=== PATIENT | male | born 2000 | race Caucasian/White ===

== ENCOUNTER 2022-03-21 14:42 | Day surgery (SDC) | payer OTHER, SELFPAY ==
[2022-03-21] VITALS (22 sets, daily range): BP systolic 101–118; BP diastolic 60–84; PULSE 67–110; RESP 12–18; TEMP 36.6–37.4; O2SAT 95–100; BMI 18.1
--- OUTSIDE RECORDS SUMMARY | 2022-03-21 15:40 | XMS_ITS ---
:2000 Author Care Team Providers Name Role Phone Timur Rainey Primary Care Provider Unavailable Allergies Code Code System Name Reaction Severity Status Onset NKDA ? Medications Name Status Start Date Stop Date ? ? Zithromax Z-Sha 250 mg tablet Active ? No t available TAKE 2 TABLETS (500 MG) BY ORAL ROUTE O NCE DAILY FOR 1 DAY THEN 1 TABLET (250 MG) BY ORAL ROUTE ONCE DAILY FOR 4 DAYS Problems Name Status Onset Date Source ? Acute Tonsillitis Active 03/17/2022 ? Procedures None recorded. Results Lab Results Date Name Specimen Result Interpretation Description Value Range Status Address ? 03/17/2022 Culture, Throat ? Culture, ? ? Final Q uest Throat [facility] - [place] [facility]: [address] 03/17/2022 Mononucleosis, Blood ? Result negative ? ? [facility], Blood [place] [facility]: [address] , [place] 03/17/2022 Rapid Strep Throat ? Strep negative ? ? [facility], Urgent C are Throat [place]: [address] , [place] Past Encounters 03/17/2022 Acute Pharyngitis; Acute Tonsillitis Timur Rainey, PA: [address], [facility] [address], [place] [address], Ph. Social History Tobacco Smoking Status Never Smoker Vaccine List Vaccine Type COVID-19, mRNA, LNP-S, PF, 30 mcg/0.3 mL dose ([facility]) 12/09/2020 12/30/2020 DTaP 01/29/1999 04/01/1999 06/03/1999 06/29/2000 Hep B, adolescent or pediatric 1998 Hep B, unspecified formulation 01/29/1999 09/06/1999 Hib, unspecified formulation 01/29/1999 04/01/1999 06/03/1999 03/17/2000 influenza, seasonal, injectable 04/25/2011 influenza, seasonal, injectable, preserv ative free 04/26/2012 influenza, unspecified formulation 04/16/2009 IPV 01/29/1999 04/01/1999 06/29/2000 meningococcal MCV4O 11/05/2015 meningococcal MCV4P 04/25/2011 MMR 12/03/1999 12/02/2002 pneumococcal conjugate PCV 7 12/03/1999 03/17/2000 Tdap 04/25/2011 varicella 12/03/1999 04/26/2012 Plan of Care Patient Instructions p?ush fluids and rest. T?ylenol or Ibuprofen as needed for pain or fever. g?argles or lozenges as needed for comfo rt. T?ada Z-pack as prescribed. See care instructions. PCP follow up in 4-5 days, sooner if pro blems, to ED if worsening pain, fever, difficulty swallowing or breathing. Reminders Provider Appointments None recorded. ? ? Lab None recorded. ? ? Referral None recorded. ? ? Procedures None recorded. ? ? Surgeries None recorded. ? ? Imaging None recorded. ? ? Vitals Blood Pressure 112/74 mm[Hg]
--- OUTSIDE RECORDS SUMMARY | 2022-03-21 15:40 | XMS_ITS | Encounter Summary ---
:2000 Author Reason for Visit sore throat Assessment and Plan Assessment Note tonsillitis, negative strep testing, th roat culture pending, negative mono. Cover with zithromax. Patient to monitor and i f any swallowing or breathing issues he is to proceed to ED immediately. Patient christianne nguyễn confirms understanding and agreement with this plan. 1. Acute pharyngitis ? rapid strep group A, throat ? sore throat: care instructions ? culture, throat ? mononucleosis, heterophile Ab, blood 2. Acute tonsillitis ? Zithromax Z-Sha 250 mg tablet Discussion Note: None recorded. Plan of Care Patient Instructions p?ush fluids and rest. T?ylenol or Ibuprofen as needed for pain or fever. g?argles or lozenges as needed for comfo rt. T?ada Z-pack as prescribed. See care instructions. PCP follow up in 4-5 days, sooner if pro blems, to ED if worsening pain, fever, difficulty swallowing or breathing. Reminders Provider Appointments None recorded. ? ? Lab Rapid Strep Group a, Throat 03/17/2022 [facility] [place] ? Culture, Throat 03/17/2022 [facility] ? Mononucleosis, Heterophile 03/17/2022 [facility], Blood [place] Referral None recorded. ? ? Procedures None recorded. ? ? Surgeries None recorded. ? ? Imaging None recorded. ? ? Medications Name Start Date ? ? Zithromax Z-Sha 250 mg tablet ? TAKE 2 TABLETS (500 MG) BY ORAL ROUTE O NCE DAILY FOR 1 DAY THEN 1 TABLET (250 MG) BY ORAL ROUTE ONCE DAILY FOR 4 DAYS Medications Administered None recorded. Vitals Blood Pressure 112/74 mm[Hg] Results Lab Results Date Name Specimen Result Interpretation Description Value Range Status Address ? 03/17/2022 Culture, Throat ? Culture, ? ? Final Q uest Throat [facility] - [place] [facility]: [address] [place] 03/17/2022 Mononucleosis, Blood ? Result negative ? ? [facility], Blood [place] [facility]: [address] , [place] 03/17/2022 Rapid Strep Throat ? Strep negative ? ? [facility]gent [facility] Th[facility]at [place]: [address] , [place] Allergies Code Code System Name Reaction Severity Onset NKDA ? ? ? Problems Name Status Onset Date Source ? Acute Tonsillitis Active 03/17/2022 ? Procedures None recorded. Vaccine List Vaccine Type COVID-19, mRNA, LNP-S, PF, 30 mcg/0.3 mL dose ([place]) 12/09/2020 12/30/2020 DTaP 01/29/1999 04/01/1999 06/03/1999 06/29/2000 [...] 12/03/1999 03/17/2000 Tdap 04/25/2011 varicella 12/03/1999 04/26/2012 Social History Tobacco Smoking Status Never Smoker What is your level of alcohol consumption? None Do you or have you ever used any other forms of tobacco or n icotine? N Have you been to an area known to be high risk for COVID-19? N In the 14 days before symptom onset, have you had close cont act with N a laboratory-confirmed COVID-19 while that case was ill? In the 14 days before symptom onset, have you had close cont act with N a person who is under investigation for COVID-19 while that person was ill? Family History Relation Problem Onset Age of Age Notes Father No current problems or (No Information) N/A ( No Notes) disability Mother No current problems or (No Information) N/A ( No Notes) disability Functional Status Unknown. Past Encounters 03/17/2022 Acute Pharyngitis; Acute Tonsillitis RATNA Nunez: [address], [place] [address], Ph. History of Present Illness ? Sore Throat UC Reported By: Patient HPI: Duration: started 3 day(s) a go. Quality: painful, sharp. Context: no recent travel, no one else w ith similar symptoms, non-smoker. Associated Symptoms: difficulty swallow ing, swollen glands, choking Notes: <div>S?T x 3 days, worse wit h swallowing, reports difficulty swallowing at times. Breathing is fine. No hx of chronic strep. 2 prior episodes of Beadle 8 years ago. Denies fev er or chills. </div> Review of Systems ? Comprehensive Adult Problem ROS Reported By: Patient Constitutional: Constitutional: no significa nt weight change, good appetite, no fever, happy/content, nor mal activity level, no fatigue Eyes: Eyes: no eye pain, no blurry vision, no eye redness, no eye itchiness, no eye swelling, no eye discharge, normal movement ENMT: ENMT: no ear pain, no ear di scharge, no hearing loss, no sinus pressure, no drooling, no fa cial swelling, no congestion, no hoarseness, no mouth lesions , sore throat Cardiovascular: Cardiovascular: no chest yasmin n, normal heart rate Chest/Breasts: Breasts: no lumps, no tender ness, no discharge Respiratory: Respiratory: no cough, no wh eezing, no chest tightness, no pain with respiration, angelina l respiration Gastrointestinal: GI: no difficulty swallowing , no abdominal pain, no nausea, no vomiting, no diarrhea, no co nstipation, no blood in stools, no mucous in stool Genitourinary: : no discharge, no blood i n urine, no pain with urination, no increase in frequency of urination, no voiding urgency, no testicular pain, no swelling , no redness, no itching, no masses Musculoskeletal: Musculoskeletal: no soft tis santi swelling, no joint swelling, no myalgia, moves all extrem ities well, no previous injuries, no trauma Skin: Skin: no pain, no itchiness, no skin dryness, no flaking, no redness, no rash, no hives, no skin lesions, no skin growths, no skin lumps, no swelling, no bruising, no insect bites Neurological symptoms: Neuro: no numbness, no weakn ess, no tingling, no burning, no shooting pain, no headache, no dizziness, no loss of consciousness Psychiatric: Psych: no depression, no anx iety, no insomnia, no stress, no loss of interest Endocrine: Endocrine: normal drinking, no temperature intolerance Allergic/Immunologic: Allergy/Immunologic: no snee zing, no runny nose Physical Exam ? Upper Respiratory Exam Reported By: Patient Constitutional: General Appearance: healthy- appearing, well-nourished, well-developed Head and Face: Inspection of face: no swell ing Eyes: Lids and Conjunctivae: no in jection, anicteric, conjunctiva: no mucoid discharge ENMT: EACs and TMs outer ear: righ t and left external auditory canals normal, tympanic membranes m obile and reactive to light bilateral. Nasal Passages: no nasal dis charge. Oropharynx: uvula midline, erythema, enlarged tonsils, exudates bilateral Neck: Neck: suppleness, non-tender , no masses, symmetrical Respiratory: Respiratory effort: breathin g normally, no inspiratory retraction. Auscultation: no wheezes, no rhonchi, no crackles, breath sounds normal Cardiovascular: Auscultation: RRR, no murmur Skin: skin inspection: no rashes; Acne noted
--- NOTE | 2022-03-21 15:51 | CRLHL7_ITS ---
For Patients: As a result of the Century Cures Act, medical imaging exams and procedure reports are released immediately into your electronic medical record. You may view this report before your referring provider. If you have questions, please contact your health care provider. INDICATION: Right peritonsillar abscess. TECHNIQUE: CT of the neck with 64 cc Isovue 370 iodinated contrast agent. Coronal and sagittal reconstructions are included. COMPARISON: None. FINDINGS: There is bilateral significant enlargement and hyperenhancement of the palatine tonsils with resulting effacement of the upper pharyngeal airway. There is a ring enhancing fluid collection within the right lateral tonsillar/peritonsillar region which measures 14 x 19 millimeters in axial plane and 24 millimeters in craniocaudal plane. It is consistent with an abscess. There is inflammatory thickening of the right parapharyngeal soft tissues. Multiple enlarged lymph nodes within the upper neck, reactive in etiology. The supraglottic, glottic and infraglottic larynx are normal. The airway including the trachea is normal and is patent. The parotid glands, submandibular and sublingual glands are normal in appearance. The thyroid gland is normal in appearance. The vascular structures opacify normally with contrast material. No suspicious lytic or blastic osseous lesions. No periapical dental disease. Visualized paranasal sinuses and mastoid air cells are clear. Visualized orbital and intracranial contents are normal. Supraclavicular regions, mediastinum and soft tissues of the imaged chest wall are normal. Visualized portions of the upper lungs are clear. IMPRESSION: 1. Findings consistent with pharyngitis/tonsillitis. Significant enlargement of the tonsils with effacement of the upper pharyngeal airway. Right peritonsillar abscess measures up to 24 millimeters in craniocaudal plane. Cellulitic change involving the right parapharyngeal soft tissues. 2. Reactive upper cervical lymphadenopathy. Please note that all CT scans at this facility use dose modulation, iterative reconstruction, and/or weight-based dosing when appropriate to reduce radiation dose to as low as reasonably achievable. Dictated by Lucien Robison MD @ 03/21/2022 6:19:47 PM (Electronically Signed)
--- NOTE | 2022-03-21 15:54 | ED_ITS ---
HPI - General Adult General Time Seen by Provider: 15:54 Date Seen: 03/21/22 Chief complaint: Sore Throat Stated complaint: Throat pain difficulty talking Time Seen by Provider: 03/21/22 15:11 Source: patient Mode of arrival: ambulatory Limitations: no limitations History of Present Illness HPI narrative: Patient is a 21 white male with a history of sore throat since , was started on a Z-Sha, but continues to have increasing pain in his right side of his throat even into his ear, he has had difficulty speaking swallowing and has had trouble opening his mouth fully. He has been generally healthy, no chronic medications, no recurrent sore throats, and he denies any significant fever or chills. The pain is been worse as mention in his throat wrote he rates at very high his O2 sat is 100%, he has not had COVID symptoms. No cough. Related Data Home Medications Medication Instructions Recorded Confirmed No Known Home Medications 03/21/22 03/21/22 Allergies Allergy/AdvReac Type Severity Reaction Status Date / Time No Known Drug Allergies Allergy Verified 03/21/22 15:25 Review of Systems Status of ROS: Reports: 10 or more systems reviewed and unremarkable except as noted in History and below Exam Narrative: Exam Narrative: Objective: Patient is alert orient x3, difficulty speaking, trismus Vital signs unremarkable afebrile, O2 sat 100% on room air HEENT shows exudate of tonsillitis and tonsillar and peritonsillar swelling on the right: Mild pharyngeal redness Neck is supple anterior adenopathy noted Pulses regular Extremities good perfusion Neurologic nonfocal Skin warm and dry 5th Const: Vital Signs, click to edit/add: Vital Signs - 24 hr 03/21/22 15:26 03/21/22 16:30 03/21/22 17:00 Temperature 97.8 F Pulse Rate [Left P ulse Oximeter] 83 91 82 Respiratory Rate 18 16 16 Blood Pressure [Le ft Upper Arm] 117/84 107/75 115/60 Pulse Oximetry 100 97 99 Oxygen Delivery Me thod Room Air 03/21/22 17:30 Temperature Pulse Rate [Left P ulse Oximeter] 79 Respiratory Rate 16 Blood Pressure [Le ft Upper Arm] 104/65 Pulse Oximetry 99 Oxygen Delivery Me thod Course Vital Signs Vital signs: Initial Vital Signs Temperature 97.8 F 03/21/22 15:26 Temperature Source Temporal Artery Scan 03/21/22 15:26 Pulse Rate 83 03/21/22 15:26 Respiratory Rate 18 03/21/22 15:26 Blood Pressure 117/84 03/21/22 15:26 Blood Pressure Mean 95 03/21/22 15:26 Blood Pressure Position Sitting 03/21/22 15:26 Pulse Oximetry 100 03/21/22 15:26 Oxygen Delivery Method 03/21/22 15:26 Vital Signs Temperature 97.8 F 03/21/22 15:26 Pulse Rate 83 03/21/22 15:26 Respiratory Rate 18 03/21/22 15:26 Blood Pressure 117/84 03/21/22 15:26 Pulse Oximetry 100 03/21/22 15:26 Oxygen Delivery Method 03/21/22 15:26 Temperature 97.8 F 03/21/22 15:26 Pulse Rate 79 03/21/22 17:30 Respiratory Rate 16 03/21/22 17:30 Blood Pressure 104/65 03/21/22 17:30 Pulse Oximetry 99 03/21/22 17:30 Oxygen Delivery Method 03/21/22 15:26 Medical Decision Making MDM Narrative Medical decision making narrative: The patient has significant peritonsillar swelling on the right consistent with a peritonsillar abscess, he has trismus, and has had a worsening sore throat despite antibiotics. Patient will get a CT scan of the neck for soft tissue, will start IV Solu-Medrol, IV Dilaudid, IV clindamycin. ENT consult when CT is completed Addendum: The patient has a large peritonsillar abscess on the right, has not eaten since 8 this morning, Dr. Vasquez in will kindly come down and see the patient and call the OR team. Lab Data Labs: Lab Results 03/21/22 03/21/22 03/21/22 Range/Units 15:40 15:40 15:40 WBC 13.81 H (4.50-11.00) K/uL RBC 4.97 (4.30-5.90) m/uL Hgb 14.2 (13.5-17.5) gm/dL Hct 42.9 (37.0-53.0) % MCV 86 (80-100) fL MCH 29 (26-34) pg MCHC 33 (32-36) gm/dL RDW Coeff of Sudarshan 13.0 (11.5-15.5) % Plt Count 317 (140-440) K/uL Neut % (Auto) 71.3 (42.0-72.0) % Lymph % (Auto) 15.7 L (20-44) % [place] % (Auto) 11.9 H (0.0-11.0) % Eos % (Auto) 0.8 (0.0-7.0) % Baso % (Auto) 0.1 (0.0-3.0) % Neut # (Auto) 9.80 H (1.7-7.0) K/uL Lymph # (Auto) 2.20 (0.90-2.90) K/uL [place] # (Auto) 1.60 H (0.00-0.90) K/UL Eos # (Auto) 0.10 (0.00-0.50) K/uL Baso # (Auto) 0.00 (0.00-0.30) K/uL Abs Immat Gran (auto) 0.03 (0.00-0.30) K/uL Sodium 140 (135-149) mmol/L Potassium 4.0 (3.6-5.1) mmol/L Chloride 101 (96-114) mmol/L Carbon Dioxide 26 (20-32) mmol/L BUN 10 (5-24) mg/dL Creatinine 0.7 (0.5-1.5) mg/dL Estimated Creat Clear 136.89 Estimated GFR 133 ml/min Glucose 77 (60-115) mg/dL Calcium 9.5 (8.4-10.6) mg/dL C-Reactive Protein 16.7 H (0.5-1.0) mg/dL SARS-CoV-2 (PCR) Negative SARS-CoV-2 (Negative) Discharge Plan Discharge Clinical Impression: Abscess, peritonsillar Prescriptions: No Action No Known Home Medications Follow Up/Referrals: Provider,Not a Local [Primary Care Provider] -
[2022-03-21 16:04] LABS: Basophils Percent Auto 0.1 % (0.0-3.0); Eosinophils Percent Auto 0.8 % (0.0-7.0); Hematocrit 42.9 % (37.0-53.0); Hemoglobin* 14.2 gm/dL (13.5-17.5); Immature Granulocytes Abs Auto 0.03 K/uL (0.00-0.30); Lymphocytes Percent Auto 15.7 % (20-44); Mean Corpuscular HGB Conc 33 gm/dL (32-36); Mean Corpuscular Hemoglobin 29 pg (26-34); Mean Corpuscular Volume 86 fL (80-100); Monocytes Percent Auto 11.9 % (0.0-11.0); Neutrophils Percent Auto 71.3 % (42.0-72.0); Platelet Count* 317 K/uL (140-440); Red Blood Count 4.97 m/uL (4.30-5.90); White Blood Count* 13.81 K/uL (4.50-11.00)
[2022-03-21 16:13] LABS: Slide Review Reflex No
[2022-03-21 16:19] LABS: Chloride* 101 mmol/L (96-114)
[2022-03-21 16:20] LABS: Sodium* 140 mmol/L (135-149)
[2022-03-21 16:22] LABS: Creatinine* 0.7 mg/dL (0.5-1.5); Est. Creatinine Clearance* 136.89; Estimated Glomerular Filt Rate 133 ml/min
[2022-03-21 16:23] LABS: Blood Urea Nitrogen* 10 mg/dL (5-24); Carbon Dioxide* 26 mmol/L (20-32); Glucose* 77 mg/dL (60-115)
[2022-03-21 16:24] LABS: Calcium* 9.5 mg/dL (8.4-10.6)
[2022-03-21] MEDS: 0.9 % SODIUM CHLORIDE 1000 ml 1,000 ML 6000 ML IV (16:28)
[2022-03-21] MEDS: METHYLPREDNISOLONE SOD SUCC 62.5 MG/ML (125) 125 MG IVP (16:28)
[2022-03-21] MEDS: HYDROmorphone 0.5 mg/0.5 ml inj IVP (16:28)
[2022-03-21 16:40] LABS: C Reactive Protein* 16.7 mg/dL (0.5-1.0)
[2022-03-21 16:53] LABS: SARS PCR* Negative SARS-CoV-2 (Negative)
--- NOTE | 2022-03-21 19:52 | W.PM.ENTCN ---
HPI- ENT Consult Date of Consult Time Seen by Provider: 19:00 Date Seen: 03/21/22 Patient: [facility] Patient Consult date: 03/21/22 Requesting Physician: Other (er) Primary Care Provider: Not a Local Provider Consult Narrative Reason for consult: Right peritonsillar abscess Narrative: Tiago Simeon is a 21 year old male with a several day history of sore throat worse on the right. Present ER with trismus and increasing right throat pain. No prior history of tonsillitis. CT scan revealed a right peritonsillar abscess that is either bilobed or 2 separate abscesses near the parapharyngeal space inferiorly on the right. He has notice shortness of breath but does have mild trace Review of Systems Narrative: Reviewed in Dr. Odonnell's note unremarkable no history of anesthetic or bleeding problems [facility] Medical History (Updated 03/21/22 @ 19:56 by Dario Herrera MD) Peritonsillar abscess Meds Home Medications and Allergies Allergies Allergy/AdvReac Type Severity Reaction Status Date / Time No Known Drug Allergies Allergy Verified 03/21/22 15:25 Exam Narrative: Exam Narrative: General skin neuro respiratory gait peripheral vascular vocal quality respiratory effort skin of head and neck negative ear external canal TM negative nose mucosa septum turbinates negative oral cavity oropharynx hypopharynx larynx neck parotid thyroid all negative with the exception of: Tonsils are 4+ mild right cervical adenopathy mild trismus. No visible abscess Const: Vital Signs, click to edit/add: Vital Signs - 24 hr 03/21/22 15:26 03/21/22 16:30 03/21/22 17:00 Temperature 97.8 F Pulse Rate [Left P ulse Oximeter] 83 91 82 Respiratory Rate 18 16 16 Blood Pressure [Le ft Upper Arm] 117/84 107/75 115/60 Pulse Oximetry 100 97 99 Oxygen Delivery Me thod Room Air 03/21/22 17:30 03/21/22 18:00 03/21/22 18:30 Temperature Pulse Rate [Left P ulse Oximeter] 79 89 85 Respiratory Rate 16 16 16 Blood Pressure [Le ft Upper Arm] 104/65 101/60 115/81 Pulse Oximetry 99 99 98 Oxygen Delivery Me thod Room Air Room Air 03/21/22 19:00 Temperature Pulse Rate [Left P ulse Oximeter] 84 Respiratory Rate 16 Blood Pressure [Le ft Upper Arm] 110/74 Pulse Oximetry 98 Oxygen Delivery Me thod Room Air ENT-CN: Result Labs Labs: Short CBC 03/21/22 Range/Units 15:40 WBC 13.81 H (4.50-11.00) K/uL Hgb 14.2 (13.5-17.5) gm/dL Hct 42.9 (37.0-53.0) % Plt Count 317 (140-440) K/uL BMP 03/21/22 15:40 Sodium 140 Potassium 4.0 Chloride 101 Carbon Dioxide 26 BUN 10 Creatinine 0.7 Glucose 77 Calcium 9.5 Assessment and Plan Assessment and plan (1) Peritonsillar abscess: Status: Acute (2) Abscess, peritonsillar: Status: Acute Plan Right peritonsillar abscess Discussed options with him regarding incision and drainage for Shakeel tonsillectomy versus medical therapy. I would favor incision and drainage. Risks include anesthesia bleeding COVID failure to achieve desired results recurrence injury to adjacent structures were all reviewed he understands and wishes to proceed we will go ahead as soon as possible
--- NOTE | 2022-03-21 19:56 | W.PM.ENTPROC ---
Procedure Note Date of procedure: 03/21/22 Procedure: Preoperative diagnosis Right peritonsillar abscess (es) Postoperative diagnosis same Procedure incision and drainage right peritonsillar/parapharyngeal abscess Under general endotracheal anesthesia patient was prepped and draped in usual fashion. The McIvor mouth gag was inserted the tongue retracted forward. There is a small amount of bleeding from anesthesia scraping the tonsil during intubation. Both tonsils were markedly enlarged. The abscess without visible. I took a needlepoint cautery and incised along the inferior anterior tonsillar pillar and immediately encountered the abscess. There appeared to be a separate abscess just superior to this. A culture was taken both cavities were copiously irrigated bleeding was controlled with Coblation. The patient was extubated in the operating room taken recovery satisfactory condition. Blood loss during procedure was less than 25 mL. There were no complications. Anesthesia Type: General Surgeon: Dario Herrera MD
--- NOTE | 2022-03-21 20:15 | W.ANESCHARGE ---
Anesthesia Charges Start Date/Time Anesthesia Start Date: 03/21/22 Anesthesia Start Time: 19:33 Stop Date/Time Anesthesia Stop Date: 03/21/22 Anesthesia Stop Time: 20:07 Summary Emergency: Yes
[2022-03-21] MEDS: AMPICILLIN/SULBACTAM 3 GM in 0.9 % SODIUM CHLORIDE Mini-bag 100 ML IVPB (22:13)
[2022-03-21] MEDS: IBUPROFEN 100 MG/5 ML SUSP 200 MG PO (22:15)
[2022-03-21] MEDS: OXYCODONE 1 MG/ML ORAL SOLN PO (22:16)
--- NOTE | 2022-03-21 23:16 | PC.NURSE ---
End of Shift: Patient arrived to floor about 2044 in bed. Patient awake and alert, rated pain at most 4/10, motrin and 5mg oxycodone given once. Patient drinking water. Patient vitally stable, lungs clear, BS WNL, IV running LR at 100. Right tonsil swollen with serosanguineous drainage on tonsil. Patient reports pain is less then before surgery. Patient has not yet urinated.
[2022-03-22 00:38] VITALS: BP 114/64; PULSE 69; RESP 16; TEMP 36.6; O2SAT 99
[2022-03-22 02:36] VITALS: BP 136/83; PULSE 73; RESP 16; TEMP 36.6; O2SAT 99
[2022-03-22] MEDS: 0.9 % SODIUM CHLORIDE 250 ml IV (03:36)
[2022-03-22] MEDS: AMPICILLIN/SULBACTAM 3 GM in 0.9 % SODIUM CHLORIDE Mini-bag 100 ML IVPB (03:37)
--- NOTE | 2022-03-22 03:51 | PC.NURSE ---
Pt rested well this night. Pain controlled. Up to BR and voiding. No N/V.
[2022-03-22 07:30] VITALS: BP 127/64; PULSE 71; RESP 18; TEMP 37.2; O2SAT 99
[2022-03-22] MEDS: IBUPROFEN 100 MG/5 ML SUSP 200 MG PO (07:50)
--- NOTE | 2022-03-22 20:09 | PC.NURSE ---
Adrian called M/S noting that swelling looked worse with a small amount of pus noted when he visualized the area. States that it does not feel any different. Denies fever or increased pain at this time. Spoke with Dr. Mares by phone and he has instructed the patient to go [facility] tomorrow at 9am to be seen. Also instructed patient if he has increased pain or other new symptoms he needs to go to the Emergency Department. Patient understands these instructions and has no further questions at this time.
== END 2022-03-22 09:09 | disposition home or self-care (01) ==
LOC: ED 18:37 → SS 18:39 → MEDSURG 20:44
PROVIDERS: Emergency Provider Family Medicine; Visit Provider Otolaryngology
PROC: 0C9PXZZ Drainage of Tonsils, External Approach (ICD-10-PCS; CPT 42700; principal; 2022-03-21 19:30)
DX: J36 Peritonsillar abscess (principal)
CPT/HCPCS: 42700; 00170; 36415; 70491; 80048; 85025; 86140; 87116; 87635; 99140; 99284; A9270; J0295; J0330; J1100; J1170; J2250; J2405; J2704; J2930; J3010; J7030; J7050; Q9967; S0077

== ENCOUNTER 2022-03-28 08:23 | Emergency (ER) | payer OTHER, SELFPAY ==
[2022-03-28 08:28] VITALS: BP 110/74; PULSE 69; RESP 18; TEMP 37.1; O2SAT 99; BMI 18.1
--- NOTE | 2022-03-28 08:38 | ED.GENADULT ---
HPI - General Adult General Time Seen by Provider: 08:38 Date Seen: 03/28/22 Chief complaint: Post Op Complication Stated complaint: Bleeding after surgery last Monday Time Seen by Provider: 03/28/22 08:33 Source: patient, RN notes reviewed and old records reviewed Mode of arrival: ambulatory Limitations: no limitations History of Present Illness HPI narrative: Patient presents to the ER about a 1/2 hour so after starting 10 notice some blood coming from the right tonsillar area. He was up a breakfast about 6:00 a.m.. About 730 he started noticing blood. He had about a 12 oz cup and had a few inches at the bottom of it from spitting up blood, some clots. It seems to have settled a bit now. Patient had a incision drainage intraoperatively of a right peritonsillar abscess with Dr. Herrera on March 21. He states the pain has been better, no fevers. He ate breakfast about 6:00 a.m., bleeding ensued about 730. He started to be able to taste blood. He feels is coming from the right peritonsillar area. He is not having any significant pain. Related Data Previous Rx's Medication Instructions Recorded amoxicillin-potassium clavulanate 1 tab PO BID #14 tabs 03/21/22 1,000 mg-62.5 mg tablet,ext.rel 12hr (Augmentin XR) oxycodone 5 mg tablet 5 mg PO Q4H PRN pain #20 tabs 03/21/22 amoxicillin 875 mg-potassium 1 tab PO BID 10 days #20 tabs 03/24/22 clavulanate 125 mg tablet Allergies Allergy/AdvReac Type Severity Reaction Status Date / Time No Known Drug Allergies Allergy Verified 03/24/22 12:58 Review of Systems Status of ROS: Reports: 6 or more systems reviewed and unremarkable except as noted in History and below [facility] Medical History (Updated 03/28/22 @ 11:25 by Natty Roth MD) Peritonsillar abscess Social History Smoking Status: Never smoker Do you use any of these nicotine containing products: None How often do you have a drink containing alcohol: monthly or less How many standard drinks containing alcohol do you have on a typical day: 1 or 2 How often do you have six or more drinks on one occasion: Never AUDIT-C Alcohol total score: 1 Non-prescribed substance use: denies use service: No Exam Const: Vital Signs, click to edit/add: Vital Signs - 24 hr 03/28/22 08:28 03/28/22 10:28 Temperature 98.7 F 98 F Pulse Rate [Right Pulse Oximeter] 69 76 Respiratory Rate 18 16 Blood Pressure [Ri ght Upper Arm] 110/74 102/64 Pulse Oximetry 99 Oxygen Delivery Me thod Room Air Documenting provider has reviewed patient's vital signs: yes Common normals: no apparent distress, oriented x3, no limitations, healthy appearing, alert and well nourished General appearance: cooperative, comfortable and well kempt Nutritional appearance: thin HENMT: Common normals: normocephalic, head/scalp atraumatic, hearing grossly normal bilaterally, external ears normal, EAC's normal, TM's normal bilaterally, external nose normal, nasal mucous membranes and turbinates normal, moist oral mucous membranes, dentition normal and gingiva normal Head and scalp: normocephalic and atraumatic Nose: external nose normal and nasal mucous membranes and turbinates normal External ear: external ears normal External auditory canal: EAC's normal Tympanic membrane: TM's normal bilaterally Other: Has tonsils bilaterally which looks symmetric, 2+. You can see the incision with a little whitish surrounding tissue on the base of the right peritonsillar area. I do see some clot within that incision but no active bleeding at this time. No bleeding elsewhere within his oropharyngeal cavity. Eye: Common normals: PERRL, EOMs intact bilaterally, conjunctivae normal and no scleral icterus Conjunctiva: conjunctiva(e) normal Pupil: PERRL Neck & C-Spine: Common normals: full ROM, no lymphadenopathy, supple, no meningeal signs, no JVD and thyroid normal Thyroid: thyroid normal Resp: Common normals: normal respiratory effort, no retractions, no use of accessory muscles and clear to auscultation bilaterally Auscultation: clear to auscultation bilaterally Cardio: Common normals: no JVD, regular rate, regular rhythm, S1 normal heart sound, S2 normal heart sound, no gallops, no clicks and no murmurs Rate: regular rate Rhythm: regular rhythm Heart sounds: S1 normal and S2 normal Neuro: Common normals: oriented x3 Sensorium/orientation: alert Meningeal signs: no meningeal signs Psych: Appearance: well kempt Course Reevaluation(s) Reevaluation #1: Patient has had no further significant rebleeding that he had at home. Has some slightly pinkish discolored saliva into the emesis bag. No rik blood clots or active blood in there. The tonsillar base still looks to have the clot on it. I do not see any active bleeding. We are going to have him try some clear liquids here and if no further rebleeding, discharge to home. Time: 10:30 Reevaluation #2: Tolerating orals without any stimulation of bleeding. Time: 11:21 Consultations Consultation #1: Spoke with Dr. Herrera and he would like us to observe the patient for few hours. I do not see any active bleeding. If he does start bleeding again we are to contact him and patient will likely need to go to the OR for cautery. I will place an IV, obtain a baseline CBC. Time: 08:38 Vital Signs Vital signs: Initial Vital Signs Temperature 98.7 F 03/28/22 08:28 Temperature Source Temporal Artery Scan 03/28/22 08:28 Pulse Rate 69 03/28/22 08:28 Respiratory Rate 18 03/28/22 08:28 Blood Pressure 110/74 03/28/22 08:28 Blood Pressure Mean 86 03/28/22 08:28 Blood Pressure Position Sitting 03/28/22 08:28 Pulse Oximetry 99 03/28/22 08:28 Oxygen Delivery Method 03/28/22 08:28 Vital Signs Temperature 98.7 F 03/28/22 08:28 Pulse Rate 69 03/28/22 08:28 Respiratory Rate 18 03/28/22 08:28 Blood Pressure 110/74 03/28/22 08:28 Pulse Oximetry 99 03/28/22 08:28 Oxygen Delivery Method 03/28/22 08:28 Temperature 98 F 03/28/22 10:28 Pulse Rate 76 03/28/22 10:28 Respiratory Rate 16 03/28/22 10:28 Blood Pressure 102/64 03/28/22 10:28 Pulse Oximetry 99 03/28/22 08:28 Oxygen Delivery Method 03/28/22 08:28 Medical Decision Making Lab Data Lab results reviewed: Yes I reviewed the patient's lab results Labs: Lab Results 03/28/22 03/28/22 Range/Units 08:58 09:05 WBC 6.95 (4.50-11.00) K/uL RBC 5.25 (4.30-5.90) m/uL Hgb 15.0 (13.5-17.5) gm/dL Hct 45.4 (37.0-53.0) % MCV 87 (80-100) fL MCH 29 (26-34) pg MCHC 33 (32-36) gm/dL RDW Coeff of Sudarshan 12.8 (11.5-15.5) % Plt Count 389 (140-440) K/uL Neut % (Auto) 52.9 (42.0-72.0) % Lymph % (Auto) 34.7 (20-44) % [place] % (Auto) 10.2 (0.0-11.0) % Eos % (Auto) 1.2 (0.0-7.0) % Baso % (Auto) 0.6 (0.0-3.0) % Neut # (Auto) 3.68 (1.7-7.0) K/uL Lymph # (Auto) 2.41 (0.90-2.90) K/uL [place] # (Auto) 0.70 (0.00-0.90) K/UL Eos # (Auto) 0.08 (0.00-0.50) K/uL Baso # (Auto) 0.04 (0.00-0.30) K/uL Abs Immat Gran (auto) 0.03 (0.00-0.30) K/uL SARS-CoV-2 (PCR) Negative SARS-CoV-2 (Negative) Critical Care Time Critical Care Time Critical Care Time: No Discharge Plan Discharge Clinical Impression: Post-op bleeding Patient Disposition: Home, Self-Care Condition: Stable Additional Instructions: Continue with postoperative recommendations as per your surgeon. I would not do any significant physical activity, try to rest for the next 48 hours. Stay hydrated drinking fluids, soft foods only so as to not aggravate the clot on the right tonsil. I have provided a note to be off work for the next 48 hours. If you should experience rebleeding, please return to the ER for further evaluation. Dr. Herrera only needs to see you if there are complications, otherwise can see him at your routine planned postoperative recheck. Prescriptions: No Action amoxicillin-pot clavulanate 875-125 mg tablet 1 tab PO BID 10 Days Qty: 20 0RF oxycodone 5 mg tablet 5 mg PO Q4H PRN (Reason: pain) Qty: 20 0RF amoxicillin-pot clavulanate [Augmentin XR] 1,000-62.5 mg tablet extended release 12 hr 1 tab PO BID Qty: 14 0RF Follow Up/Referrals: Provider,Not a Local [Primary Care Provider] - Stand Alone Forms: [facility] Info Instructions
[2022-03-28 09:12] LABS: Basophils Absolute Auto 0.04 K/uL (0.00-0.30); Basophils Percent Auto 0.6 % (0.0-3.0); Eosinophils Absolute Auto 0.08 K/uL (0.00-0.50); Eosinophils Percent Auto 1.2 % (0.0-7.0); Hematocrit 45.4 % (37.0-53.0); Immature Granulocytes Abs Auto 0.03 K/uL (0.00-0.30); Lymphocytes Absolute Auto 2.41 K/uL (0.90-2.90); Lymphocytes Percent Auto 34.7 % (20-44); Mean Corpuscular HGB Conc 33 gm/dL (32-36); Mean Corpuscular Hemoglobin 29 pg (26-34); Mean Corpuscular Volume 87 fL (80-100); Monocytes Percent Auto 10.2 % (0.0-11.0); Neutrophils Absolute Auto 3.68 K/uL (1.7-7.0); Neutrophils Percent Auto 52.9 % (42.0-72.0); Platelet Count* 389 K/uL (140-440); RDW Coefficient of Variation % 12.8 % (11.5-15.5); Red Blood Count 5.25 m/uL (4.30-5.90); White Blood Count* 6.95 K/uL (4.50-11.00)
[2022-03-28 09:22] LABS: Slide Review Reflex No
[2022-03-28 10:13] LABS: SARS PCR* Negative SARS-CoV-2 (Negative)
[2022-03-28 10:28] VITALS: BP 102/64; PULSE 76; RESP 16; TEMP 36.6
--- NOTE | 2022-03-28 11:50 | ED.NURSE ---
Pt d/c to home, note for work given. Pt did not have IV placed. blood was drawn instead
== END 2022-03-28 11:50 | disposition home or self-care (01) ==
PROVIDERS: Emergency Provider Family Medicine
DX: L76.22 Postprocedural hemorrhage of skin and subcutaneous tissue following other procedure (principal)
CPT/HCPCS: 36415; 85025; 87635; 99283

== ENCOUNTER 2022-04-09 17:16 | Observation (INO) | payer OTHER, SELFPAY ==
[2022-04-09 17:26] VITALS: BP 113/76; PULSE 91; RESP 12; TEMP 38; O2SAT 99; BMI 18.1
--- NOTE | 2022-04-09 18:10 | CRLHL7_ITS ---
For Patients: As a result of the Century Cures Act, medical imaging exams and procedure reports are released immediately into your electronic medical record. You may view this report before your referring provider. If you have questions, please contact your health care provider. Indication: Peritonsillar abscess Technique: Volumetric multidetector CT images of the cervical soft tissues were obtained after the administration of low osmolar intravenous contrast. Sixty-four cc Isovue 370 low osmolar intravenous contrast Comparison: CT soft tissue neck March 21, 2022 Findings: The partially visualized brain parenchyma is normal in attenuation without evidence of abnormal enhancement. The orbits and their contents are within normal limits. The paranasal sinuses are clear. The mastoid air cells are clear. The nasopharynx is unremarkable. The fossae of Rosenmuller are clear. There are enlarged bilateral palatine tonsils left greater than right with demonstration of a 2.0 x 1.2 centimeter abscess within the left palatine tonsil along the lateral tonsillar margin without definite extension into the parapharyngeal space. Previously seen abscess within the right palatine tonsil on previous exam has resolved. The hypopharynx is clear. The deep spaces of the neck are otherwise preserved. The vocal folds are nonthickened with symmetrical appearance. The thyroid gland is normal in attenuation. There are moderately enlarged left greater than right cervical lymph nodes commensurate with reactive changes. The jugular veins are patent. The carotid arteries demonstrate no significant atherosclerotic narrowing. The lung apices are clear. The cervical vertebral body heights are grossly maintained with reversal of the normal cervical lordosis. Impression: Interval drainage of previously-seen inferior right parapharyngeal abscess from remote comparison exam. There is persistent enlargement of the palatine tonsils commensurate with tonsillitis with development of a new rim enhancing 2.0 x 1.2 centimeter abscess within the lateral margin of the left palatine tonsil without definite extension into the parapharyngeal space. Persistent reactive adenopathy. Please note that all CT scans at this facility use dose modulation, iterative reconstruction, and/or weight-based dosing when appropriate to reduce radiation dose to as low as reasonably achievable. Dictated by Naif Chisholm MD @ 04/09/2022 7:40:45 PM (Electronically Signed)
--- NOTE | 2022-04-09 18:12 | ED_ITS ---
HPI - General Adult General Chief complaint: Ear/Nose/Throat Problem Stated complaint: Left tonsil swelling causing difficulty breathing Time Seen by Provider: 04/09/22 18:03 Source: patient Limitations: no limitations History of Present Illness HPI narrative: 21-year-old male presents with a left-sided sore throat for the past 3 days, radiating to the left ear and worsening significantly since yesterday. Interestingly, he had a right peritonsillar abscess 2-1/2 weeks ago that was evaluated in our emergency department. He underwent uncomplicated surgical drainage for this. Patient states that he is having no difficulty breathing, is still able to swallow. He had a soft Taco today at approximately noon. He took some ibuprofen earlier today with no improvement in his pain. He noted fever that started early this afternoon, prompting presentation to the emergency department. He notes no other systemic symptoms, has no long-term health problems. His only prior surgery is the peritonsillar abscess drainage 2 and half weeks ago, takes no long-term medications, has not been on antibiotics in the last few days. No recent trauma or injury. Related Data Previous Rx's Medication Instructions Recorded amoxicillin-potassium clavulanate 1 tab PO BID #14 tabs 03/21/22 1,000 mg-62.5 mg tablet,ext.rel 12hr (Augmentin XR) oxycodone 5 mg tablet 5 mg PO Q4H PRN pain #20 tabs 03/21/22 Allergies Allergy/AdvReac Type Severity Reaction Status Date / Time No Known Drug Allergies Allergy Verified 04/09/22 18:55 Review of Systems Narrative: Notable for the generalized and HEENT symptoms as above. Otherwise denies any respiratory, cardiovascular, GI, skin, musculoskeletal, neurological or behavioral Health changes. Const: Reports: fever ENMT: Reports: throat pain PFSH PFSH Medical History (Updated 04/09/22 @ 20:03 by Ekaterina Brownlee MD) Peritonsillar abscess Surgical History (Updated 04/09/22 @ 19:59 by Ekaterina Brownlee MD) Hx of peritonsillar abscess drainage Social History Smoking Status: Never smoker Do you use any of these nicotine containing products: None How often do you have a drink containing alcohol: monthly or less How many standard drinks containing alcohol do you have on a typical day: 1 or 2 How often do you have six or more drinks on one occasion: Never AUDIT-C Alcohol total score: 1 Non-prescribed substance use: denies use service: No Exam Const: Vital Signs, click to edit/add: Vital Signs - 24 hr 04/09/22 17:26 04/09/22 18:38 04/09/22 19:17 Temperature 100.4 F H Pulse Rate [Pulse Oximeter] 91 78 77 Respiratory Rate 12 Blood Pressure [Ri ght Upper Arm] 113/76 Pulse Oximetry 99 98 99 Oxygen Delivery Me thod Room Air Room Air Room Air Documenting provider has reviewed patient's vital signs: yes Common normals: no apparent distress and alert General appearance: cooperative and well kempt Orientation/consciousness: Yes awake Other: Sweet and cooperative. Excellent historian. HENMT: Common normals: normocephalic, external ears normal, EAC's normal and external nose normal Head and scalp: normocephalic Face and sinus: normal facial exam Nose: external nose normal and nares normal External ear: external ears normal External auditory canal: EAC's normal Other: Oropharynx has moist membranes, lips acyanotic, good dentition. The right tonsil is 2+ with no redness or swelling. The left peritonsillar area appears swollen with some displacement of the left pharyngeal arch. Eye: Common normals: conjunctivae normal and no scleral icterus Conjunctiva: conjunctiva(e) normal Neck & C-Spine: Other: Moderate bilateral submandibular and anterior cervical lymphadenopathy. Normal range of motion of neck Resp: Common normals: normal respiratory effort and clear to auscultation bilaterally Auscultation: clear to auscultation bilaterally Cardio: Common normals: regular rate, regular rhythm, no murmurs and peripheral pulses 2+ throughout Rate: regular rate Rhythm: regular rhythm Peripheral pulses: pulses 2+ throughout GI: Common normals: Normal to inspection, nondistended, normoactive bowel sounds present, soft to palpation, non-tender and no hepatosplenomegaly Palpation: soft and no hepatosplenomegaly Extremity: Common normals: no pedal edema Neuro: Sensorium/orientation: awake and alert Motor exam: no tremor noted and no movement abnormalities noted Psych: Appearance: well kempt Attitude: calm and engaged Attention/concentration: attention grossly intact Memory/cognition: memory grossly intact Insight: insight good Judgement: judgment good Skin: Common normals: no rashes or lesions noted General skin exam: no rashes or lesions noted Course Vital Signs Vital signs: Initial Vital Signs Temperature 100.4 F H 04/09/22 17:26 Temperature Source Temporal Artery Scan 04/09/22 17:26 Pulse Rate 91 04/09/22 17:26 Pulse Rhythm 04/09/22 17:26 Respiratory Rate 12 04/09/22 17:26 Blood Pressure 113/76 04/09/22 17:26 Blood Pressure Mean 88 04/09/22 17:26 Blood Pressure Position Sitting 04/09/22 17:26 Pulse Oximetry 99 04/09/22 17:26 Oxygen Delivery Method 04/09/22 17:26 Vital Signs Temperature 100.4 F H 04/09/22 17:26 Pulse Rate 91 04/09/22 17:26 Respiratory Rate 12 04/09/22 17:26 Blood Pressure 113/76 04/09/22 17:26 Pulse Oximetry 99 04/09/22 17:26 Oxygen Delivery Method 04/09/22 17:26 Temperature 100.4 F H 04/09/22 17:26 Pulse Rate 77 04/09/22 19:17 Respiratory Rate 12 04/09/22 17:26 Blood Pressure 113/76 04/09/22 17:26 Pulse Oximetry 99 04/09/22 19:17 Oxygen Delivery Method 04/09/22 19:17 Medical Decision Making MDM Narrative Medical decision making narrative: Suspect left-sided peritonsillar abscess, differential diagnosis discussed with patient. IV fluids given, patient had some temporary improvement with the IV morphine. CT scan was performed, showing a 1.2 x 2 cm left peritonsillar abscess. Dr. Herrera is out of town, case was discussed with Dr. Cates. He recommended IV antibiotics and reassessment tomorrow. I discussed the case with our hospitalist, we will begin IV clindamycin. Dr. Cates does not recommend steroids. Patient should be re-evaluated early tomorrow afternoon and Dr. Cates should be updated if his symptoms are not improving, may require surgical drainage. Dr. Cates's phone number is [phone]. No signs of trismus, no airway compromise. Lab Data Lab results reviewed: Yes I reviewed the patient's lab results Labs: Lab Results 04/09/22 04/09/22 04/09/22 Range/Units 18:33 18:33 18:33 WBC 13.32 H (4.50-11.00) K/uL RBC 4.61 (4.30-5.90) m/uL Hgb 13.3 L (13.5-17.5) gm/dL Hct 40.1 (37.0-53.0) % MCV 87 (80-100) fL MCH 29 (26-34) pg MCHC 33 (32-36) gm/dL RDW Coeff of Sudarshan 12.9 (11.5-15.5) % Plt Count 364 (140-440) K/uL Neut % (Auto) 72.7 H (42.0-72.0) % Lymph % (Auto) 14.9 L (20-44) % [place] % (Auto) 11.6 H (0.0-11.0) % Eos % (Auto) 0.5 (0.0-7.0) % Baso % (Auto) 0.2 (0.0-3.0) % Neut # (Auto) 9.70 H (1.7-7.0) K/uL Lymph # (Auto) 2.00 (0.90-2.90) K/uL [place] # (Auto) 1.50 H (0.00-0.90) K/UL Eos # (Auto) 0.10 (0.00-0.50) K/uL Baso # (Auto) 0.00 (0.00-0.30) K/uL Abs Immat Gran (auto) 0.01 (0.00-0.30) K/uL Sodium 139 (135-149) mmol/L Potassium 3.7 (3.6-5.1) mmol/L Chloride 102 (96-114) mmol/L Carbon Dioxide 25 (20-32) mmol/L BUN 14 (5-24) mg/dL Creatinine 0.9 (0.5-1.5) mg/dL Estimated Creat Clear 106.47 Estimated GFR 123 ml/min Glucose 84 (60-115) mg/dL Calcium 9.7 (8.4-10.6) mg/dL C-Reactive Protein 5.1 H (0.5-1.0) mg/dL SARS-CoV-2 (PCR) Negative SARS-CoV-2 (Negative) Imaging Data CT- Other: My impression: 1.2 x 2 cm left peritonsillar abscess. Radiology report reviewed. Discharge Plan Discharge Clinical Impression: Abscess, peritonsillar Patient Disposition: Admitted As Inpatient Prescriptions: No Action oxycodone 5 mg tablet 5 mg PO Q4H PRN (Reason: pain) Qty: 20 0RF amoxicillin-pot clavulanate [Augmentin XR] 1,000-62.5 mg tablet extended release 12 hr 1 tab PO BID Qty: 14 0RF Follow Up/Referrals: Provider,Not a Local [Primary Care Provider] -
[2022-04-09] MEDS: LACTATED RINGERS 1000 ML 1,000 ML IV (18:33)
[2022-04-09] MEDS: MORPHINE 2 MG/ML inj IVP (18:33)
[2022-04-09] MEDS: ONDANSETRON 2 MG/ML inj 4 MG IVP (18:33)
[2022-04-09 18:38] VITALS: PULSE 78; O2SAT 98
[2022-04-09 18:41] LABS: Basophils Percent Auto 0.2 % (0.0-3.0); Eosinophils Percent Auto 0.5 % (0.0-7.0); Hematocrit 40.1 % (37.0-53.0); Hemoglobin* 13.3 gm/dL (13.5-17.5); Immature Granulocytes Abs Auto 0.01 K/uL (0.00-0.30); Lymphocytes Percent Auto 14.9 % (20-44); Mean Corpuscular HGB Conc 33 gm/dL (32-36); Mean Corpuscular Hemoglobin 29 pg (26-34); Mean Corpuscular Volume 87 fL (80-100); Monocytes Percent Auto 11.6 % (0.0-11.0); Neutrophils Percent Auto 72.7 % (42.0-72.0); Platelet Count* 364 K/uL (140-440); RDW Coefficient of Variation % 12.9 % (11.5-15.5); Red Blood Count 4.61 m/uL (4.30-5.90); White Blood Count* 13.32 K/uL (4.50-11.00)
--- OUTSIDE RECORDS SUMMARY | 2022-04-09 18:42 | XMS_ITS ---
:2000 Author Care Team Providers Name Role Phone Timur Rainey Primary Care Provider Unavailable Allergies Code Code System Name Reaction Severity Status Onset NKDA ? Medications Name Status Start Date Stop Date ? ? amoxicillin 875 mg-potassium clavulanate 125 mg tablet Active ? Not available TAKE 1 TABLET BY MOUTH TWICE DAILY FOR 10 DAYS amoxicillin-potassium clavulanate 1,000 mg-62.5 mg tablet,ext.re l 12hr Active ? Not available TAKE 1 TABLET BY MOUTH TWICE DAILY azithromycin 250 mg tablet Active ? Not a vailable oxycodone 5 mg tablet Active ? Not availa ble TAKE 1 TABLET BY MOUTH EVERY 4 HOURS NEEDED FOR PAIN Problems Name Status Onset Date Source ? Acute Tonsillitis Active 03/17/2022 ? Procedures None recorded. Results Lab Results Date Name Specimen Result Interpretation Description Value Range Status Address ? 03/17/2022 Culture, Throat ? Culture, ? ? Final Q uest Throat [facility]ro[facility] - [place] [facility]: [id number], [place] 03/17/2022 Mononucleosis, Blood ? Result negative ? ? [facility], Blood [place] lt: [address] , [place] 03/17/2022 Rapid Strep Throat ? Strep negative ? ? [facility], Urgent C are Throat [place]: [address] , [place] Past Encounters 03/17/2022 Acute Pharyngitis; Acute Tonsillitis Timur Rainey, PA: [address], [address], [place] [id number], Ph. Social History Tobacco Smoking Status Never Smoker Vaccine List Vaccine Type COVID-19, mRNA, LNP-S, PF, 30 mcg/0.3 mL dose ([place]) 12/09/2020 12/30/2020 DTaP 01/29/1999 04/01/1999 06/03/1999 06/29/2000 [...]
--- OUTSIDE RECORDS SUMMARY | 2022-04-09 18:42 | XMS_ITS | Encounter Summary ---
[...] a, Throat 03/17/2022 [facility] [place] ? Culture, Throat 03/17/2022 [facility] ? Mononucleosis, Heterophile 03/17/2022 [facility], Blood [place] Referral None recorded. ? ? Procedures None recorded. ? ? Surgeries None recorded. ? ? Imaging None recorded. ? ? Medications Name Start Date ? ? amoxicillin 875 mg-potassium clavulanate 125 mg tablet ? TAKE 1 TABLET BY MOUTH TWICE DAILY FOR 10 DAYS amoxicillin-potassium clavulanate 1,000 mg-62.5 mg tab let,ext.rel 12hr ? TAKE 1 TABLET BY MOUTH TWICE DAILY azithromycin 250 mg tablet ? TAKE 2 TABLETS (500 MG) BY ORAL ROUTE O NCE DAILY FOR 1 DAY THEN 1 TABLET (250 MG) BY ORAL ROUTE ONCE DAILY FOR 4 DAYS oxycodone 5 mg tablet ? TAKE 1 TABLET BY MOUTH EVERY 4 HOURS NEEDED FOR PA IN Medications Administered None recorded. Vitals Blood Pressure [...] [address] , [place] 03/17/2022 Rapid Strep Throat ? Strep negative ? ? [facility] [place]: [address] , [place] Allergies Code Code System Name Reaction Severity Onset NKDA ? ? ? Problems Name Status Onset Date Source ? Acute Tonsillitis Active 03/17/2022 ? Procedures None recorded. Vaccine List Vaccine Type COVID-19, mRNA, LNP-S, PF, 30 mcg/0.3 mL dose (Cyanogen) 12/09/2020 12/30/2020 DTaP 01/29/1999 04/01/1999 06/03/1999 06/29/2000 [...] RATNA Nunez: [address], [address], [place] [id number], Ph. History of Present Illness ? Sore [...] of chronic strep. 2 prior episodes of R[place] 8 years ago. Denies fev er or [...]
[2022-04-09 18:52] LABS: Slide Review Reflex No
[2022-04-09 18:58] LABS: Chloride* 102 mmol/L (96-114); Potassium* 3.7 mmol/L (3.6-5.1); Sodium* 139 mmol/L (135-149)
[2022-04-09 19:01] LABS: Blood Urea Nitrogen* 14 mg/dL (5-24); Carbon Dioxide* 25 mmol/L (20-32); Creatinine* 0.9 mg/dL (0.5-1.5); Est. Creatinine Clearance* 106.47; Estimated Glomerular Filt Rate 123 ml/min
[2022-04-09 19:02] LABS: Calcium* 9.7 mg/dL (8.4-10.6); Glucose* 84 mg/dL (60-115)
[2022-04-09 19:04] LABS: C Reactive Protein* 5.1 mg/dL (0.5-1.0)
[2022-04-09 19:17] VITALS: PULSE 77; O2SAT 99
[2022-04-09 19:23] LABS: SARS PCR* Negative SARS-CoV-2 (Negative)
--- NOTE | 2022-04-09 19:55 | PM.IMHP1 ---
Hospitalist- H&P: HPI History of Present Illness Date Seen: 04/09/22 Chief complaint: Left tonsil swelling causing difficulty breathing Narrative: Tiago Simeon is a 21 year old male who presented to the ED for L sided throat pain. Symptoms have been present for 3 days, worse today. No fevers prior to ED arrival. + dysphagia and odynophagia, no trismus. Primarily eating softer foods 2/2 symptoms. No sick contacts. Adrian is generally healthy. Interestingly, he had a RIGHT DOCUMENTATION BILLING CLERK 3 weeks ago, drained by Dr. Herrera of ENT. That is his only previous surgery. ER course and findings: - White blood count of 13 - given IV pain medication and clindamycin - CT scan exhibits a 2 cm x 1.2 cm abscess in left tonsil without definite extension to the parapharyngeal space - ED physician discussed case with Dr. Cates of ENT, who recommends admission, continuing clindamycin, and clinical monitoring. Steroids were not recommended by ENT. When I see patient, he has no concerns for me. No significant family history. Has been COVID vaccinated. Nonsmoker, rare ETOH use. No history of STIs. Monogamous with partner (Cassie Gonzalez, , medical decision maker if needed); Adrian lives with her and their 2 toddlers. Requests Full Code status. Review of Systems Status of ROS: Reports: 10 or more systems reviewed and unremarkable except as noted in History and below Narrative: Mild headache today. No abdominal pain or joint pain. No skin changes. PFSH PFSH Medical History (Updated 04/09/22 @ 20:03 by Ekaterina Brownlee MD) Peritonsillar abscess Surgical History (Updated 04/09/22 @ 19:59 by Ekaterina Brownlee MD) Hx of peritonsillar abscess drainage Social History Highest level of school completed/degree received: high school graduate Smoking Status: Never smoker Do you use any of these nicotine containing products: None How often do you have a drink containing alcohol: monthly or less How many standard drinks containing alcohol do you have on a typical day: 1 or 2 How often do you have six or more drinks on one occasion: Never AUDIT-C Alcohol total score: 1 Non-prescribed substance use: denies use Caffeine: No service: No Meds Home Medications and Allergies Home Medication Comments: Patient takes no medications on a regular basis. Allergies Allergy/AdvReac Type Severity Reaction Status Date / Time No Known Drug Allergies Allergy Verified 04/09/22 18:55 Exam Narrative: Exam Narrative: GEN: Alert and oriented, answering questions appropriately. Noted to have a hot potato voice HEENT: Normal external ears, EOMIs bilaterally. No trismus noted on oropharyngeal exam. + bilateral tonsillar hypertrophy, posterior oropharynx patent. + Full ROM of neck, + cervical adenopathy CV: RRR, No concerning murmurs, rubs, or gallops R: LCTA bilaterally without concerning wheezing, rales, or rhonchi Ext: wwp, no concerning edema Skin: No concerning skin lesions or rashes on exposed skin Neuro: Nonfocal Psych: Appropriate Const: Vital Signs, click to edit/add: Vital Signs - 24 hr 04/09/22 17:26 04/09/22 18:38 04/09/22 19:17 Temperature 100.4 F H Pulse Rate [Pulse Oximeter] 91 78 77 Respiratory Rate 12 Blood Pressure [Ri ght Upper Arm] 113/76 Pulse Oximetry 99 98 99 Oxygen Delivery Me thod Room Air Room Air Room Air Hospitalist - H&P: Result Labs Labs: Short CBC 04/09/22 Range/Units 18:33 WBC 13.32 H (4.50-11.00) K/uL Hgb 13.3 L (13.5-17.5) gm/dL Hct 40.1 (37.0-53.0) % Plt Count 364 (140-440) K/uL BMP 04/09/22 18:33 Sodium 139 Potassium 3.7 Chloride 102 Carbon Dioxide 25 BUN 14 Creatinine 0.9 Glucose 84 Calcium 9.7 Assessment and Plan Assessment and plan (1) Peritonsillar abscess: Status: Acute Plan Admit to the hospital and continue clindamycin. Pain medications prn Close clinical monitoring, update ENT as appropriate. Patient requests full code status. Given age and low risk status, in addition to the possibility of upcoming surgery, we will defer pharmacologic anticoagulation and utilize SCDs and ambulation for DVT prophylaxis.
[2022-04-09] MEDS: HYDROmorphone 0.5 mg/0.5 ml inj IVP ×2 (19:58→21:13)
[2022-04-09 20:43] VITALS: BP 113/76; PULSE 77; RESP 12; TEMP 38
[2022-04-09] MEDS: CLINDAMYCIN 900 MG/6 ML VIAL IVPB (20:47)
[2022-04-09 21:15] VITALS: BP 121/79; PULSE 68; RESP 18; TEMP 36.8; O2SAT 96; BMI 19.0
[2022-04-09 21:27] VITALS: O2SAT 96
[2022-04-10] VITALS (8 sets, daily range): BP systolic 105–122; BP diastolic 64–83; PULSE 71–103; RESP 16–20; TEMP 36.6–37; O2SAT 97–99
[2022-04-10] MEDS: HYDROmorphone 0.5 mg/0.5 ml inj IVP ×5 (00:41→15:36)
[2022-04-10] MEDS: 0.9 % SODIUM CHLORIDE 1000 ml 1,000 ML 125 ML IV ×2 (00:43→09:57)
--- NOTE | 2022-04-10 05:46 | PC.NURSE ---
Pt pleasant and cooperative. Up Independantly in room. VSS he has been afebrile. Does complain of a sore throat for which he is receiving Dilaudid 0.5mg. He has received it 3x this shift. IVF at 125 as he is taking decreased amt of fluids due to sore throat. He has taken minimal amt of ice water. He is receiving Clindamycin IV q6H
[2022-04-10] MEDS: ONDANSETRON 2 MG/ML inj 4 MG IVP (08:27)
--- NOTE | 2022-04-10 11:36 | P.IMPN_ITS ---
Progress Note: A&P Assessment and plan (1) Peritonsillar abscess: Status: Acute Plan 1. peritonsillar abscess -continue clindamycin -advance diet as tolerated -pain control -Discussed case with Dr. Cates; ok to initiate decadron -anticipated discharge tomorrow with PO antibiotics and ENT follow up Subjective Date Seen: 04/10/22 Interval history: patient endorses pain with swallowing tolerating liquids but not softs no vomiting Exam Narrative: Exam Narrative: Gen: no acute distress HEENT: NCAT, erythema and edema of posterior oropharynx CV: RRR normal s1 s2 Lungs: CTAB Neuro: alert, oriented Const: Vital Signs, click to edit/add: Vital Signs - 24 hr 04/09/22 17:26 04/09/22 18:38 04/09/22 19:17 Temperature 100.4 F H Pulse Rate [Pulse Oximeter] 91 78 77 Pulse Rate [Right Radial] Respiratory Rate 12 Blood Pressure [Ri ght Arm] Blood Pressure [Ri ght Upper Arm] 113/76 Pulse Oximetry 99 98 99 Oxygen Delivery Me thod Room Air Room Air Room Air 04/09/22 20:43 04/09/22 21:27 04/09/22 21:15 Temperature 100.4 F H 98.3 F Pulse Rate [Pulse Oximeter] 77 Pulse Rate [Right Radial] 68 Respiratory Rate 12 18 Blood Pressure [Ri ght Arm] 121/79 Blood Pressure [Ri ght Upper Arm] 113/76 Pulse Oximetry 96 96 Oxygen Delivery Me thod Room Air 04/10/22 03:00 Temperature 98 F Pulse Rate [Pulse Oximeter] Pulse Rate [Right Radial] 91 Respiratory Rate 18 Blood Pressure [Ri ght Arm] 116/83 Blood Pressure [Ri ght Upper Arm] Pulse Oximetry Oxygen Delivery Me thod Room Air Labs Labs: Laboratory Results - last 24 hr 04/09/22 04/09/22 04/09/22 18:33 18:33 18:33 WBC 13.32 H RBC 4.61 Hgb 13.3 L Hct 40.1 MCV 87 MCH 29 MCHC 33 RDW Coeff of Sudarshan 12.9 Plt Count 364 Neut % (Auto) 72.7 H Lymph % (Auto) 14.9 L [place] % (Auto) 11.6 H Eos % (Auto) 0.5 Baso % (Auto) 0.2 Neut # (Auto) 9.70 H Lymph # (Auto) 2.00 [place] # (Auto) 1.50 H Eos # (Auto) 0.10 Baso # (Auto) 0.00 Abs Immat Gran (auto) 0.01 Sodium 139 Potassium 3.7 Chloride 102 Carbon Dioxide 25 BUN 14 Creatinine 0.9 Estimated Creat Clear 106.47 Estimated GFR 123 Glucose 84 Calcium 9.7 C-Reactive Protein 5.1 H SARS-CoV-2 (PCR) Negative SARS-CoV-2
[2022-04-10] MEDS: CLINDAMYCIN 900 MG/50 ML-D5W IVPB ×2 (12:14→20:29)
--- NOTE | 2022-04-10 20:10 | PC.NURSE ---
shift [id number] pt this shift calm and cooperative with cares. Vitals stable, pain rated 7/10, treated with Dilaudid see eMAR. Able to eat 50% of most meals, and taking in fluids PO. Independent in room.
[2022-04-10] MEDS: 0.9 % SODIUM CHLORIDE 1000 ml 1,000 ML 100 ML IV (21:48)
[2022-04-11 04:00] VITALS: BP 112/81; PULSE 78; RESP 16; TEMP 37.1; O2SAT 98
[2022-04-11] MEDS: CLINDAMYCIN 900 MG/50 ML-D5W IVPB ×2 (04:02→11:53)
--- NOTE | 2022-04-11 06:35 | PC.NURSE ---
END OF SHIFT NOTE: PT FATIGUED, BUT COOPERATIVE. PT AMBULATES INDEPENDENTLY IN ROOM. VSS ON RA; AFEBRILE. PT RATES THROAT PAIN 0-4/10 WITH RELIEF FROM COOL WATER AND REST. ABX ADMINISTERED PER EMAR. PT REMOVED CONTINUOUS PULSE OX MULTIPLE TIMES DURING THE NIGHT; O2 SATS 97-98%; REMOVED CONTINUOUS PULSE OX FOR PT COMFORT. PLAN TO DC TODAY ON ORAL ABX AND TO F/U WITH ENT.
[2022-04-11 07:00] VITALS: BP 130/72; PULSE 99; RESP 18; TEMP 37.2; O2SAT 99
[2022-04-11 07:25] LABS: Chloride* 102 mmol/L (96-114); Sodium* 135 mmol/L (135-149)
[2022-04-11 07:26] LABS: Potassium* 4.2 mmol/L (3.6-5.1)
[2022-04-11 07:28] LABS: Carbon Dioxide* 25 mmol/L (20-32); Creatinine* 0.7 mg/dL (0.5-1.5); Est. Creatinine Clearance* 139.31; Estimated Glomerular Filt Rate 133 ml/min
[2022-04-11 07:29] LABS: Blood Urea Nitrogen* 9 mg/dL (5-24); Glucose* 130 mg/dL (60-115)
[2022-04-11 11:00] VITALS: BP 119/75; PULSE 82; RESP 18; TEMP 37.2; O2SAT 98
--- NOTE | 2022-04-11 12:05 | P.DS_ITS ---
DS: Providers Provider Time Seen by Provider: 09:00 Date Seen: 04/11/22 Date of admission: 04/09/22 20:32 Primary care physician: Not a Local Provider Admitting Clinician: Leatha Cagle MD Attending Physician on discharge: Leatha Cagle MD Date of Discharge: 04/11/22 DS: Diagnosis Discharge Diagnosis (1) Peritonsillar abscess: Status: Acute Problem details: Patient had right peritonsillar abscess drained 3 weeks ago. Treated with Augmentin. Had improvement and now admitted with left peritonsillar abscess. Treated with IV clindamycin. DS: Summary Hospital Course Hospital Course: Patient had right peritonsillar abscess drained on March 21. Following that he did get Augmentin. He had improvement in his symptoms. In the last few days he has had increasing left-sided sore throat. He was found to have a small peritonsillar abscess on the left side. He has been treated with intravenous clindamycin. Reports feeling quite a bit better today. Status at Discharge Functional status at discharge: independent ambulation Overall status at discharge: patient is back to baseline Time Spent with Patient Time attestation: Total time spent providing and/or coordinating discharge services: Time spent: Greater than 30 minutes Exam Narrative: Exam Narrative: Inspection of the oropharynx shows bilateral prominent tonsils. They nearly meet in the midline. Left side has some erythema and exudate. The right side has minimal erythema and no exudate. He has no stridor. Neck is supple with minimal tenderness over his anterior nodes. No marked adenopathy. Const: Vital Signs, click to edit/add: Vital Signs - 24 hr 04/10/22 15:00 04/10/22 15:00 04/10/22 20:45 Temperature 98.6 F 98.6 F Pulse Rate [Pulse Oximeter] 73 Pulse Rate [Right Radial] 103 H 103 H Respiratory Rate 20 20 16 Blood Pressure [Ri ght Arm] 119/66 110/72 Pulse Oximetry 99 97 Oxygen Delivery Me thod Room Air Room Air 04/10/22 21:27 04/10/22 23:00 04/10/22 23:40 Temperature 98.1 F Pulse Rate [Pulse Oximeter] 71 71 Pulse Rate [Right Radial] Respiratory Rate 16 16 Blood Pressure [Ri ght Arm] 105/68 Pulse Oximetry 97 98 Oxygen Delivery Me thod Room Air 04/11/22 04:00 04/11/22 07:00 04/11/22 07:00 Temperature 98.7 F 98.9 F Pulse Rate [Pulse Oximeter] 78 99 99 Pulse Rate [Right Radial] Respiratory Rate 16 18 18 Blood Pressure [Ri ght Arm] 112/81 130/72 Pulse Oximetry 98 99 Oxygen Delivery Me thod Room Air Room Air 04/11/22 07:00 04/11/22 11:00 Temperature 99.0 F Pulse Rate [Pulse Oximeter] 82 Pulse Rate [Right Radial] Respiratory Rate 18 Blood Pressure [Ri ght Arm] 119/75 Pulse Oximetry 99 98 Oxygen Delivery Me thod Room Air Documenting provider has reviewed patient's vital signs: yes DS: Data Data Completed and Pending Labs on day of discharge: Labs from last 24 hours 04/11/22 06:44 Sodium 135 Potassium 4.2 Chloride 102 Carbon Dioxide 25 BUN 9 Creatinine 0.7 Estimated Creat Clear 139.31 Estimated GFR 133 Glucose 130 H Calcium 9.0 Discharge Plan Discharge Disposition: Home, Self-Care Date of Admission: 04/09/22 20:32 Attending Provider on Discharge: José Miguel Jack Primary Care Provider: Provider,Not a Local Condition: Improved Anticipated Discharge Date/Time: 04/11/22 14:00 Discharge Medications: New clindamycin HCl 300 mg capsule 600 mg PO TID Qty: 30 0RF Discharge Orders: Discharge Order (Routine); Ordered 04/11/22 Ordered By: José Miguel Jack Patient Education: Clindamycin (By mouth), Peritonsillar Abscess (DC) Activity Restrictions/Additional Instructions: Return to the emergency department if you have worsening of your sore throat, trouble breathing or severe diarrhea. Activity Level: Activity as Tolerated Discharge Diet: Regular Follow Up Appointments: Provider,Not a Local [Primary Care Provider] - Dario Herrera MD [Staff Physician] - 04/12/22 10:30 am (Please arrive at 10:30am at [facility] Address is [address] [place] [address]) Forms: [email or web address] Info Instructions
--- NOTE | 2022-04-11 14:43 | PC.NURSE ---
Pt up in room independently. Rating pain in throat 1-2/10, denies need for medication management. Tolerates regular/soft diet. IV DC'd, cath tip intact. DC instructions given verbally and in writing. Understands instructions and follow up appoint with ENT. DC to home @2595.
== END 2022-04-11 14:41 | disposition home or self-care (01) ==
LOC: ED 20:03 → MEDSURG 20:33
PROVIDERS: Hospitalist; Admitting Provider Family Medicine; Emergency Provider Family Medicine; Visit Provider Family Medicine
DX: J36 Peritonsillar abscess (principal); J35.1 Hypertrophy of tonsils; R07.0 Pain in throat; R06.9 Unspecified abnormalities of breathing; R50.9 Fever, unspecified; R13.10 Dysphagia, unspecified; R51.9 Headache, unspecified
CPT/HCPCS: 36415; 70491; 80048; 85025; 86140; 87635; 94761; 96361; 96365; 96366; 96375; 96376; 99283; 99285; G0378; J1100; J1170; J2270; J2405; J7030; J7120; Q9967; S0077

== ENCOUNTER 2023-09-22 21:05 | Emergency (ER) | payer OTHER, SELFPAY ==
[2023-09-22 21:15] VITALS: BP 131/95; PULSE 75; RESP 16; TEMP 37; O2SAT 98; BMI 18.1
--- NOTE | 2023-09-22 21:29 | XR_ITS ---
Patient: BRIDGETT KEENE Facility:?[facility] Patient ID:?[id number] Site Patient ID:?[id number]. Site :?[id number] Study:?XRay-Chest 2V-09/22/2023 9:44:28 PM Ordering Physician:PIPER Final Report: INDICATION: Chest pain since noon today TECHNIQUE: Chest radiograph 2 views COMPARISON: None FINDINGS: Mediastinum: The mediastinum is normal in appearance. The heart silhouette is normal in size and morphology. Lung: Both lungs are unremarkable in appearance. No sign of pleural effusion seen. No pneumothorax is identified. Bone and Soft tissue: Mild dextroscoliosis is present. IMPRESSION: 1. No acute cardiopulmonary disease is seen. Dictated by: Antonio Watkins MD @ 09/22/2023 22:10:53 Signed by:?Antonio Watkins MD @09/22/2023 10:10:53 PM (Electronic Signature)
[2023-09-22 22:26] LABS: Basophils Percent Auto 0.2 % (0.0-3.0); Eosinophils Percent Auto 0.9 % (0.0-7.0); Hematocrit 43.3 % (37.0-53.0); Hemoglobin* 14.5 gm/dL (13.5-17.5); Immature Granulocytes Pct Auto 0.9 %; Lymphocytes Percent Auto 20.1 % (20-44); Mean Corpuscular HGB Conc 34 gm/dL (32-36); Mean Corpuscular Hemoglobin 29 pg (26-34); Mean Corpuscular Volume 87 fL (80-100); Monocytes Percent Auto 9.1 % (0.0-11.0); Neutrophils Percent Auto 68.8 % (42.0-72.0); Platelet Count* 320 K/uL (140-440); RDW Coefficient of Variation % 12.3 % (11.5-15.5); Red Blood Count 4.99 m/uL (4.30-5.90); White Blood Count* 12.54 K/uL (4.50-11.00)
[2023-09-22 22:31] LABS: Slide Review Reflex No
[2023-09-22 22:41] LABS: D Dimer Quantitative* 0.12 ug/ml (0.00-0.50)
--- NOTE | 2023-09-22 22:49 | ED.GENADULT ---
HPI - General Adult General Date Seen: 09/22/23 Chief complaint: Chest Pain Stated complaint: chest pain/jaw pain Time Seen by Provider: 09/22/23 21:24 Source: patient, RN notes reviewed and old records reviewed Mode of arrival: ambulatory Limitations: no limitations History of Present Illness HPI narrative: Patient is a 22-year-old male who presents for evaluation of chest pain of about 12 hours duration. He says it started earlier when he was at work at [employer], he ended up leaving because it was bothering him. It is in the center of his chest, he describes it as a ?cold sensation and both sides of his jaw feel cold as well. He notes that it felt a little better when he laid down but did not resolve. He denies any fever, cough. Does feel like it is a little hard to take a deep breath. No history of DVT or PE, asthma. He notes that he gets a similar sensation if he sprints, although that goes away quickly. He does not smoke, denies any alcohol or drug history. General health is good. Related Data Previous Rx's Medication Instructions Recorded clindamycin HCl 300 mg capsule 600 mg (2 x 300 mg) PO TID #30 caps 04/11/22 Allergies Allergy/AdvReac Type Severity Reaction Status Date / Time No Known Drug Allergies Allergy Verified 04/12/22 11:02 Review of Systems Status of ROS: Reports: 10 or more systems reviewed and unremarkable except as noted in History and below [facility] Medical History Peritonsillar abscess ?J36 - Peritonsillar abscess (ICD-10) Surgical History Hx of peritonsillar abscess drainage ?Z98.890 - Other specified postprocedural states (ICD-10) Social History Highest level of school completed/degree received: high school graduate Smoking Status: Never smoker Do you use any of these nicotine containing products: None How often do you have a drink containing alcohol: monthly or less How many standard drinks containing alcohol do you have on a typical day: 1 or 2 How often do you have six or more drinks on one occasion: Never AUDIT-C Alcohol total score: 1 Non-prescribed substance use: denies use Caffeine: No service: No Exam Narrative: Exam Narrative: Vital signs as noted above. In general, an alert, well-appearing patient. Breathing easily. He is tall and thin. Head: Normocephalic, atraumatic. Eyes: Pupils are equal reactive. Extraocular movements are full. Conjunctivae are normal. ENT: Mucous membranes are moist. Throat is normal. Neck: Supple without lymphadenopathy. Heart: Regular rate and rhythm. No murmur or rub. Lungs: Clear bilaterally. No increased work of breathing, crackles or wheezes. Abdomen: Soft and nontender. No organomegaly. Extremities: Well perfused. No edema. No calf tenderness. Bilateral radial pulses intact. Neurologic: Patient is alert and oriented to person and place. Speech is fluent. Face is symmetric. Moves all extremities equally. Affect: Normal. Skin: Warm and dry. Well perfused. Const: Vital Signs, click to edit/add: Vital Signs - 24 hr 09/22/23 21:15 Temperature 98.6 F Pulse Rate [Pulse Oximeter] 75 Respiratory Rate 16 Blood Pressure [Ri ght Upper Arm] 131/95 H Pulse Oximetry 98 Oxygen Delivery Me thod Room Air Documenting provider has reviewed patient's vital signs: yes Course Course ED Course: Patient had an EKG on arrival, this shows a sinus rhythm, ventricular rate of 79. T-waves are inverted in leads 2 3 and F, somewhat flat in the lateral leads. No ST segment changes, MN is 126 milliseconds, normal QT. I ordered a chest x-ray which by my review is unremarkable, no pneumothorax or other acute findings. Final radiology read is likewise negative. Given his report of some chest pain with sprinting I did do a troponin which is 0. CRP is 1, D-dimer is 0.12. In the presence of 12 hours of pain with a negative troponin, I do not think this represents acute coronary syndrome, I think coronary artery disease is overall unlikely given his age, but did discuss with him that if symptoms are persistent primary care follow-up would be reasonable to determine whether any other testing such as an echo would be reasonable. His white blood cell count is mildly elevated at 12.5, of uncertain significance given normal chest x-ray and absence of respiratory symptoms. No evidence of bronchospasm. Vital signs are normal. Overall I think it is reasonable to let him go home, primary care follow-up for persistent symptoms. Discussed that it would be reasonable to try omeprazole for week or 2 to see if that affects his symptoms. For acute worsening, severe symptoms of any kind, new symptoms such as fever or significant dyspnea return to the emergency department. Vital Signs Vital signs: Initial Vital Signs Temperature 98.6 F 09/22/23 21:15 Temperature Source Temporal Artery Scan 09/22/23 21:15 Pulse Rate 75 09/22/23 21:15 Respiratory Rate 16 09/22/23 21:15 Blood Pressure 131/95 H 09/22/23 21:15 Blood Pressure Mean 107 H 09/22/23 21:15 Blood Pressure Position Sitting 09/22/23 21:15 Pulse Oximetry 98 09/22/23 21:15 Oxygen Delivery Method Room Air 09/22/23 21:15 Vital Signs Temperature 98.6 F 09/22/23 21:15 Pulse Rate 75 09/22/23 21:15 Respiratory Rate 16 09/22/23 21:15 Blood Pressure 131/95 H 09/22/23 21:15 Pulse Oximetry 98 09/22/23 21:15 Oxygen Delivery Method Room Air 09/22/23 21:15 Temperature 98.6 F 09/22/23 21:15 Pulse Rate 75 09/22/23 21:15 Respiratory Rate 16 09/22/23 21:15 Blood Pressure 131/95 H 09/22/23 21:15 Pulse Oximetry 98 09/22/23 21:15 Oxygen Delivery Method Room Air 09/22/23 21:15 Medical Decision Making Lab Data Labs: Lab Results 09/22/23 Range/Units 21:46 WBC 12.54 H (4.50-11.00) K/uL RBC 4.99 (4.30-5.90) m/uL Hgb 14.5 (13.5-17.5) gm/dL Hct 43.3 (37.0-53.0) % MCV 87 (80-100) fL MCH 29 (26-34) pg MCHC 34 (32-36) gm/dL RDW Coeff of Sudarshan 12.3 (11.5-15.5) % Plt Count 320 (140-440) K/uL Neut % (Auto) 68.8 (42.0-72.0) % Lymph % (Auto) 20.1 (20-44) % [place] % (Auto) 9.1 (0.0-11.0) % Eos % (Auto) 0.9 (0.0-7.0) % Baso % (Auto) 0.2 (0.0-3.0) % Neut # (Auto) 8.60 H (1.7-7.0) K/uL Lymph # (Auto) 2.50 (0.90-2.90) K/uL [place] # (Auto) 1.10 H (0.00-0.90) K/UL Eos # (Auto) 0.10 (0.00-0.50) K/uL Baso # (Auto) 0.00 (0.00-0.30) K/uL Abs Immat Gran (auto) 0.10 (0.00-0.30) K/uL Imm/Tot Granulo (auto) 0.9 % D-Dimer Quant (PE/DVT) 0.12 (0.00-0.50) ug/ml C-Reactive Protein 1.0 (0.5-1.0) mg/dL POC Troponin I 0.00 L (0.01-0.04) ng/ml Discharge Plan Discharge Clinical Impression: Chest pain Patient Disposition: Home, Self-Care Condition: Stable Instructions: Chest Pain (ED) Additional Instructions: Primary care follow-up for persistent symptoms. Consider a trial of omeprazole, 40 mg a day for a week or 2, you can use Tums or Maalox as well and see if that helps. For severe pain, fainting, fevers, or other acute worsening, return any time to the emergency department. Prescriptions: No Action clindamycin HCl 300 mg capsule 600 mg PO TID Qty: 30 0RF Follow Up/Referrals: Provider,Not a Local [Primary Care Provider] - Stand Alone Forms: [employer] Info Instructions
== END 2023-09-22 23:00 | disposition home or self-care (01) ==
PROVIDERS: Emergency Provider Emergency Medicine
DX: R07.9 Chest pain, unspecified (principal)
CPT/HCPCS: 36415; 71046; 84484; 85025; 85379; 86140; 93005; 99284; 99285